=== PATIENT | male | born 1955 | race Caucasian/White ===

== ENCOUNTER 2017-05-27 15:28 | Outpatient (CLI) | payer OTHER | END 2017-05-27 15:29 | disposition home or self-care (01) | LOC: BICULT 15:28 | PROVIDERS: ATTEND Internal Medicine Endocrinology, Diabetes & Metabolism | DX: E04.1 Nontoxic single thyroid nodule (principal); E04.2 Nontoxic multinodular goiter | CPT/HCPCS: 76536 ==

== ENCOUNTER 2018-11-26 13:20 | Outpatient (CLI) | payer MEDICARE, BC ==
--- NOTE | 2018-11-26 14:14 | ULT ---
Thyroid ultrasound: 11/26/2018 COMPARISON: 05/27/2017 HISTORY: Reevaluate left thyroid nodule technique multiplanar grayscale sonographic imaging of the th yroid gland obtained. FINDINGS: Thyroid isthmus measures 2 mm in AP dimension. The right lobe measures 1.7 x 4.7 x 1.9 cm. There is a tiny hypoechoic nodule within the mid right lo be measuring 3 mm. The left lobe measures 1.9 x 1.5 x 4.1 cm. There is a solid hypoechoic nodule within the left lobe of the thyroid gland superiorly measuring 1.1 x 1.0 x 0.9 cm, stable. No new thyroid nodule noted. IMPRESSION: TI-RADS 3-mildly suspicious. Given stability and size of less than 1.5 cm, no follow-up imaging is recommended.
== END 2018-11-26 13:21 | disposition home or self-care (01) ==
LOC: BICULT 13:20
PROVIDERS: ATTEND Internal Medicine Endocrinology, Diabetes & Metabolism
DX: E04.1 Nontoxic single thyroid nodule (principal)
CPT/HCPCS: 76536

== ENCOUNTER 2021-03-12 12:27 | Outpatient (CLI) | payer MEDICARE, BC | END 2021-03-12 12:28 | disposition home or self-care (01) | LOC: BICULT 12:27 | PROVIDERS: ATTEND Internal Medicine Endocrinology, Diabetes & Metabolism | DX: E04.1 Nontoxic single thyroid nodule (principal) | CPT/HCPCS: 76536 ==